=== PATIENT | female | born 1955 | race Caucasian/White ===

== ENCOUNTER 2020-07-30 07:23 | Outpatient (CLI) | payer BC, SELFPAY ==
--- NOTE | ~2020-07-30 | MM_ITS ---
EXAMINATION: MM screening [facility] BI w nahed HISTORY: Screening mammogram TECHNIQUE: Craniocaudal and mediolateral oblique 3-D tomosynthesis images were obtained and synthetic 2-D images were generated. CAD analysis was submitted and interpreted. COMPARISON: 04/18/2011 BREAST PARENCHYMAL COMPOSITION: There are scattered areas of fibroglandular density. FINDINGS: There is no evidence of suspicious mass, calcification, or architectural distortion to sugg est malignancy in either breast. There has been no suspicious interval change. IMPRESSION: 1. No mammographic evidence of malignancy. 2. Recommend routine screening mammography in one year. BI-RADS Category 1: Negative Reviewed, dictated and finalized at location A. O CHECKER
== END 2020-07-30 07:24 | disposition home or self-care (01) ==
DX: Z12.31 Encounter for screening mammogram for malignant neoplasm of breast (principal)
CPT/HCPCS: 77063; 77067

== ENCOUNTER 2020-11-21 08:38 | Outpatient (CLI) | payer BC, SELFPAY | END 2020-11-21 08:39 | disposition home or self-care (01) | LOC: ANHCOVIDVC 08:39 | DX: Z23 Encounter for immunization (principal) | CPT/HCPCS: 0001A; 91300 ==

== ENCOUNTER 2020-12-12 08:36 | Outpatient (CLI) | payer BC, SELFPAY | END 2020-12-12 08:37 | LOC: ANHCOVIDVC 08:37 | DX: Z23 Encounter for immunization (principal) | CPT/HCPCS: 0002A; 91300 ==